=== PATIENT | male | born 1985 | race Caucasian/White ===

== ENCOUNTER 2020-06-11 08:09 | Emergency (ER) | payer OTHER ==
[~2020-06-11] VITALS: Ht 185.4 cm; Wt 98.0 kg
[2020-06-11 08:09] VITALS: BP_SYST 133
--- NOTE | 2020-06-11 08:09 | NUR ---
Patient to ER bed 6 to gown for evaluation. Side rails up. Report given to LI Jameson.
--- NOTE | 2020-06-11 08:39 | NUR ---
pt in mar, laceration to thumb cleansed. Bleeding controlled.
--- NOTE | 2020-06-11 08:40 | NUR ---
JOSH Abdalla at bedside examining patient.
[2020-06-11] MEDS ORDERED: DIPH-TET-PERTUS Vaccine 0.5 ML VIAL (ADACEL) I.M. ONE (08:45)
--- NOTE | 2020-06-11 09:00 | NUR ---
left thumb dressing placed. instructions given and understood.
[2020-06-11 09:07] VITALS: BP_SYST 133
--- NOTE | 2020-06-11 09:09 | NUR ---
Patient given written and verbal discharge instructions and verbalizes understanding. ER MD Abdalla discussed with patient the results and treatment provided. Patient in stable condition. ID arm band removed. Rx of motrin given. Patient educated on pain management and to follow up with PMD. Pain Scale 2/10. Opportunity for questions provided and answered. Medication side effect fact sheet provided.
== END 2020-06-11 09:07 | disposition home or self-care (01) ==
LOC: SED 08:09
DX: S61.012A Laceration without foreign body of left thumb without damage to nail, initial encounter (principal); W26.8XXA Contact with other sharp object(s), not elsewhere classified, initial encounter; Y93.89 Activity, other specified; Y92.89 Other specified places as the place of occurrence of the external cause; Y99.8 Other external cause status
CPT/HCPCS: 90715; 99283